=== PATIENT | male | born 1995 | race Caucasian/White ===

== ENCOUNTER 2017-09-08 05:16 | Emergency (ER) | payer BC ==
[~2017-09-08] VITALS: Ht 170.2 cm; Wt 63.6 kg
[2017-09-08 05:18] VITALS: TEMP 97.9
[2017-09-08 06:23] LABS: BASO # 0.1 (0.0-0.2); BASO % 0.4 % (0.0-2.0); EOS # 0.2 (0.0-0.7); EOS % 1.9 % (0-4.0); GRAN # 10.7 (1.4-6.5); GRAN % 86.5 % (42.2-75.2); LYMPH # 0.4 (1.2-3.4); LYMPH % 3.2 % (20.0-51.0); MEAN CELL VOLUME 86 fl (80.0-95.0); MEAN CORPUSCULAR HEMOGLOBIN 29 pg (26.0-32.0); MEAN CORPUSCULAR HGB CONC 34 g/dl (33.0-37.0); MEAN PLATELET VOLUME 10.2 fl (7.4-10.4); MONO % 7.7 % (1.7-9.3); PLATELET COUNT 157 K/mm3 (130-400); RED BLOOD COUNT 5.46 M/mm3 (4.20-5.60); REDCELL DISTRIBUTION WIDTH-CV 12.7 % (11.5-14.5); WHITE BLOOD COUNT 12.4 K/mm3 (4.8-10.8)
[2017-09-08 06:35] LABS: ADJUSTED CALCIUM 9.1 mg/dL (8.4-10.2); ALBUMIN 5.3 gm/dL (3.5-5.0); BILIRUBIN,TOTAL 1.2 mg/dL (0.0-1.0); CALCIUM 10.1 mg/dL (8.4-10.2); CREATININE, serum 0.93 mg/dL (0.66-1.25); POTASSIUM 4.4 mmol/L (3.4-5.0); TOTAL PROTEIN 8.8 gm/dL (6.4-8.2)
[2017-09-08] MEDS ORDERED: ZOFRAN ODT4 MG PO (07:21)
[2017-09-08 07:34] LABS: PH 7 (5-8); SQUAMOUS EPITHELIAL None Seen /hpf; URINE APPEARANCE Clear; URINE BACTERIA None Seen /hpf; URINE BILIRUBIN Negative (NEGATIVE); URINE BLOOD Negative (NEGATIVE); URINE COLOR Yellow; URINE GLUCOSE Negative (NEGATIVE); URINE KETONE 1+ (NEGATIVE); URINE RBC 0-2 /hpf; URINE UROBILINOGEN Negative (NEGATIVE); URINE WBC 0-2 /hpf
[2017-09-08 07:37] VITALS: BP 126/72; PULSE 112
== END 2017-09-08 07:38 | disposition home or self-care (01) ==
LOC: COL.ER 05:16
PROVIDERS: Emergency Medicine
DX: K52.9 Noninfective gastroenteritis and colitis, unspecified (principal)
CPT/HCPCS: J2765; J7030

== ENCOUNTER 2019-05-26 09:02 | Emergency (ER) | payer BC ==
[~2019-05-26] VITALS: Ht 170.2 cm; Wt 68.2 kg
[~2019-05-26 09:02] MED LIST: ZOFRAN ODT4 MG PO
[2019-05-26 09:09] VITALS: BP 122/71; TEMP 97.7
[2019-05-26] MEDS ORDERED: CILOXAN 5 ML5 ML OP (09:54)
[2019-05-26 10:30] VITALS: PULSE 70
== END 2019-05-26 10:30 | disposition home or self-care (01) ==
LOC: COL.ER 09:02
DX: S05.02XA Injury of conjunctiva and corneal abrasion without foreign body, left eye, initial encounter (principal); X58.XXXA Exposure to other specified factors, initial encounter; Y93.68 Activity, volleyball (beach) (court)